=== PATIENT | male | born 1935 | race Caucasian/White ===

== ENCOUNTER 2020-04-07 12:44 | Emergency (ER) | payer MEDICARE, BC ==
[~2020-04-07] VITALS: Ht 182.9 cm; Wt 81.7 kg
[~2020-04-07 12:44] MED LIST: CLEOCIN HCL150 MG PO; COUMADIN 1MG TAB1 M1 PO; HYDROXYZINE HCL25 M1 PO; METOPROLOL SUCC50 MG PO; ROBAXIN 750 MG750 M1 PO; TRIAMCINOLONE A80 G2 TOP; XANAX 0.25 MG0.25 MG PO
[2020-04-07 13:35] LABS: INFLUENZA A ANTIGEN Negative (Negative); INFLUENZA B ANTIGEN Negative (Negative)
[2020-04-07] MEDS ORDERED: PREDNISONE 20 M20 MG PO (13:58)
[2020-04-07] MEDS ORDERED: KEFLEX500 M1 PO (13:59)
[2020-04-07 14:07] VITALS: BP 174/90
== END 2020-04-07 14:08 | disposition home or self-care (01) ==
LOC: M.ERS 12:44
PROVIDERS: Nurse Practitioner Family
DX: J02.9 Acute pharyngitis, unspecified (principal); Z20.828 Contact with and (suspected) exposure to other viral communicable diseases; Z79.899 Other long term (current) drug therapy; Z79.01 Long term (current) use of anticoagulants

== ENCOUNTER 2020-04-13 10:45 | Emergency (ER) | payer MEDICARE, BC ==
[~2020-04-13] VITALS: Ht 172.7 cm; Wt 81.7 kg
[~2020-04-13 10:45] MED LIST changes: +KEFLEX500 M1 PO; +PREDNISONE 20 M20 MG PO
[2020-04-13] MEDS ORDERED: LIDOCAINE VISC100 ML PO (12:15)
[2020-04-13] MEDS ORDERED: PEPTO-BISM262 MG/15 PO (12:15)
[2020-04-13] MEDS ORDERED: MAALOX MAXIMUM355 ML PO (12:15)
[2020-04-13 12:39] VITALS: BP 180/99
== END 2020-04-13 12:40 | disposition home or self-care (01) ==
LOC: M.ERS 10:45
DX: J02.9 Acute pharyngitis, unspecified (principal); I65.23 Occlusion and stenosis of bilateral carotid arteries; I10 Essential (primary) hypertension; I48.91 Unspecified atrial fibrillation; Z79.899 Other long term (current) drug therapy; Z79.01 Long term (current) use of anticoagulants